=== PATIENT | male | born 1955 | race American Indian/Alaskan Native ===

== ENCOUNTER 2019-04-08 11:30 | Emergency (ER) | payer SELFPAY ==
[2019-04-08 11:49] VITALS: BP 164/90
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
== END 2019-04-08 13:28 | disposition home or self-care (01) ==
LOC: ED 11:30
DX: S76.012A Strain of muscle, fascia and tendon of left hip, initial encounter (principal); M16.12 Unilateral primary osteoarthritis, left hip; I10 Essential (primary) hypertension; Z79.899 Other long term (current) drug therapy; V89.2XXA Person injured in unspecified motor-vehicle accident, traffic, initial encounter; Y93.89 Activity, other specified; Y92.410 Unspecified street and highway as the place of occurrence of the external cause; Y99.8 Other external cause status

== ENCOUNTER 2019-12-16 08:09 | Emergency (ER) | payer SELFPAY ==
[2019-12-16] MEDS ORDERED: BENZONATATE 100 MG CAP PO ONE (09:44)
--- NOTE | 2019-12-16 10:55 | XRay Report ---
CHEST 2 VIEWS INDICATION / CLINICAL INFORMATION: Cough. COMPARISON: None available. FINDINGS: SUPPORT DEVICES: None. HEART / MEDIASTINUM: No significant abnormality. LUNGS / PLEURA: No significant pulmonary or pleural abnormality. No pneumothorax. ADDITIONAL FINDINGS: No significant additional findings. IMPRESSION: 1. No acute findings. Signer Name: Nader Fernandez MD Signed: 12/16/2019 10:51 AM Workstation Name: [email or web address]
--- NOTE | 2019-12-16 11:20 | Emergency Department Report ---
Upper Respiratory HPI - HPI Chief Complaint: Upper Respiratory Infection Stated Complaint: COUGH Time Seen by Provider: 12/16/19 09:25 Duration: 2 Days URI Symptoms: Rhinorrhea: Yes, Sore Throat: Yes, Ear Pain: No, Cough: Yes, Shortness of Breath: No, Sick Contacts: No, Unable to Take Fluids: No, Urine Output Abnormal: No, Listless Behavior: No Other History: This is a 64-year-old male nontoxic, well nourished in appearance, no acute signs of distress presents to the ED with c/o of nonproductive dry cough, rhinorrhea, sore throat, nasal congestion x2 days. Patient denies any sick contact. Patient denies any recent travels, long car, recent hospital stays. Patient denies any calf pain or calf tenderness. Patient denies any chest pain, short of breath, fever, chills, nausea, vomiting, hemoptysis, numbness, tingling, headache or stiff neck. Patient denies any allergies. Patient stated past medical history is hypertension that he does see a primary care doctor and stated is doing diet control rather than taking medicine. - Home Meds and Allergies Home Medications: Previous Rx's Medication Instructions Recorded Last Taken Type Cyclobenzaprine [Flexeril] 10 mg PO TID PRN #20 tablet 04/08/19 Unknown Rx Ibuprofen [Motrin 400 MG tab] 400 mg PO TID 5 Days #15 tablet 04/08/19 Unknown Rx Azithromycin [Zithromax Z-BIB] 250 mg PO DAILY #6 tablet 12/16/19 Unknown Rx Benzonatate [Tessalon Perles] 100 mg PO Q8HR PRN #12 capsule 12/16/19 Unknown Rx Allergies/Adverse Reactions: Allergies Allergy/AdvReac Type Severity Reaction Status Date / Time No Known Allergies Allergy Unverified 02/15/16 09:12 ED Review of Systems ROS: Stated complaint: COUGH Other details as noted in HPI Constitutional: denies: chills, fever Eyes: denies: eye pain, eye discharge, vision change ENT: throat pain, congestion. denies: ear pain Respiratory: cough. denies: shortness of breath, wheezing Cardiovascular: denies: chest pain, palpitations Endocrine: no symptoms reported Gastrointestinal: denies: abdominal pain, nausea, diarrhea Genitourinary: denies: urgency, dysuria Musculoskeletal: denies: back pain, joint swelling, arthralgia Skin: denies: rash, lesions Neurological: denies: headache, weakness, paresthesias Psychiatric: denies: anxiety, depression Hematological/Lymphatic: denies: easy bleeding, easy bruising ED Past Medical Hx - Past Medical History Previous Medical History?: Yes Hx Hypertension: Yes - Surgical History Past Surgical History?: No - Social History Smoking Status: Never Smoker Substance Use Type: None - Medications Home Medications: Home Medications Medication Instructions Recorded Confirmed Last Taken Type Cyclobenzaprine [Flexeril] 10 mg PO TID PRN #20 tablet 04/08/19 Unknown Rx Ibuprofen [Motrin 400 MG tab] 400 mg PO TID 5 Days #15 tablet 04/08/19 Unknown Rx Azithromycin [Zithromax Z-BIB] 250 mg PO DAILY #6 tablet 12/16/19 Unknown Rx Benzonatate [Tessalon Perles] 100 mg PO Q8HR PRN #12 capsule 12/16/19 Unknown Rx ED Bronchiolitis Physical Exam - Exam General: Vital signs noted. No distress. Alert and acting appropriately. Neurologic: Alert and oriented, no deficits. Musculoskeletal: Unremarkable. ED Bronchiolitis Tests - Testing Testing: CXR: Normal/Negative ED Physical Exam - General Limitations: No Limitations General appearance: alert, in no apparent distress - Head Head exam: Present: atraumatic, normocephalic - Eye Eye exam: Present: normal appearance - Expanded ENT Exam Expanded Ear exam: Present: normal external inspection Mouth exam: Present: normal external inspection. Absent: drooling, trismus, muffled voice Throat exam: Positive: tonsillar erythema, other (Uvula midline. No abscess or swelling.). Negative: tonsillomegaly, tonsillar exudate, R peritonsillar mass, L peritonsillar mass - Neck Neck exam: Present: normal inspection, full ROM. Absent: tenderness, meningismus, lymphadenopathy - Respiratory Respiratory exam: Present: normal lung sounds bilaterally. Absent: respiratory distress, wheezes, rales, rhonchi, stridor, chest wall tenderness, accessory muscle use, decreased breath sounds, prolonged expiratory - Cardiovascular Cardiovascular Exam: Present: regular rate, normal rhythm, normal heart sounds. Absent: bradycardia, tachycardia, irregular rhythm, systolic murmur, diastolic murmur, rubs, gallop - Extremities Exam Extremities exam: Present: normal inspection, full ROM - Back Exam Back exam: Present: normal inspection, full ROM - Neurological Exam Neurological exam: Present: alert, oriented X3, normal gait - Psychiatric Psychiatric exam: Present: normal affect, normal mood - Skin Skin exam: Present: warm, dry, intact, normal color. Absent: rash ED Course Vital Signs 12/16/19 08:16 Temperature 98.6 F Pulse Rate 84 Respiratory 20 Rate Blood Pressure 181/106 O2 Sat by Pulse 97 Oximetry - Reevaluation(s) Reevaluation #1: 12/16/19 11:18 Patient is speaking in full sentences with no signs of distress noted. ED Medical Decision Making - Medical Decision Making This is a 64-year-old male that presents with bronchitis and pharyngitis. Patient is stable and was examined by me. Chest x-ray has been obtained and dictated by radiologist with normal exam. Patient is notified of x-ray results with no questions noted. Patient does not meet clinical concerns of COVID-19 but patient was instructed and educated on signs and symptoms and to self quarantine and seek medical attention as soon as possible if symptoms does occur. Due to patient having symptoms of upper respiratory infection and worsening I will treat patient empirically with zpak. Patient was instructed to increase hydration, rest and take Tylenol for fever episodes. Patient received tesslone perrls in the ED. Vitals stable. Patient is nonfebrile and normal heart rate. According to ACEP: (1) in ED patients with asymptomatic markedly elevated blood pressure, routine screening for acute target organ injury (eg, serum creatinine, urinalysis, ECG) is not required. (1) In patients with asymptomatic markedly elevated blood pressure, routine ED medical intervention is not required. No changes in b/p from previous ED visits. Patient was instructed Follow-up with a primary care doctor in 3-5 days or if symptoms worsen and continue return to emergency room as soon as possible. At time time of discharge, the patient does not seem toxic or ill in appearance. No acute signs of distress noted. Patient agrees to discharge treatment plan of care. No further questions noted by the patient.nt. Critical care attestation.: If time is entered above; I have spent that time in minutes in the direct care of this critically ill patient, excluding procedure time. ED Disposition Clinical Impression: Bronchitis Pharyngitis Qualifiers: Pharyngitis/tonsillitis etiology: unspecified etiology Qualified Code(s): J02.9 - Acute pharyngitis, unspecified Disposition: DC- TO HOME OR SELFCARE Is pt being admited?: No Does the pt Need Aspirin: No Condition: Stable Instructions: Pharyngitis (ED), Acute Bronchitis (ED) Additional Instructions: Follow-up with a primary care doctor in 3-5 days or if symptoms worsen and continue return to emergency room as soon as possible. Prescriptions: Benzonatate [Tessalon Perles] 100 mg PO Q8HR PRN #12 capsule PRN Reason: Cough Azithromycin [Zithromax Z-BIB] 250 mg PO DAILY #6 tablet Referrals: PRIMARY MD PAULA [Primary Care Provider] - 3-5 Days GLENNA SHEFFIELD MD [Staff Physician] - 3-5 Days [facility] [Provider Group] - 3-5 Days Forms: Work/School Release Form(ED)
[2019-12-16 11:30] VITALS: BP 178/100
== END 2019-12-16 11:29 | disposition home or self-care (01) ==
LOC: ED 08:09
DX: J40 Bronchitis, not specified as acute or chronic (principal); J02.9 Acute pharyngitis, unspecified; I10 Essential (primary) hypertension; Z79.899 Other long term (current) drug therapy
CPT/HCPCS: 71046

== ENCOUNTER 2021-03-31 17:04 | Emergency (ER) | payer SELFPAY ==
--- NOTE | 2021-03-31 18:51 | XRay Report ---
CHEST 1 VIEW 03/31/2021 6:41 PM INDICATION / CLINICAL INFORMATION: cough. COMPARISON: Chest x-ray 12/16/2019 FINDINGS: SUPPORT DEVICES: None. HEART / MEDIASTINUM: No significant abnormality. LUNGS / PLEURA: No significant pulmonary or pleural abnormality. No pneumothorax. ADDITIONAL FINDINGS: No significant additional findings. IMPRESSION: 1. No acute findings. Signer Name: Giacomo King MD Signed: 03/31/2021 6:46 PM Workstation Name: [id number]
[2021-03-31 19:49] VITALS: BP 159/102
--- NOTE | 2021-03-31 19:51 | Event Note ---
ED Screening Note ED Screening Note: cough for over a month states he feels lightheaded and like he wants to pass out he states occasionally he feels sob and wheezing denies any CP, leg swelling, fever, v/d, hemoptysis he has never been a smoker pmhx htn recently placed on lisinopril oxygen is 92% xr is normal will order labs, ekg This initial assessment/diagnostic orders/clinical plan/treatment(s) is/are subject to change based on patients health status, clinical progression and re- assessment by fellow clinical providers in the ED. Further treatment and workup at subsequent clinical providers discretion. Patient/guardian urged not to elope from the ED as their condition may be serious if not clinically assessed and managed. Initial orders include: labs, ekg
[2021-03-31 20:32] LABS: Basophils # (Auto) 0.1 K/mm3 (0.0-0.1); Basophils % (Auto) 0.9 % (0.0-1.8); Eosinophils % (Auto) 14.9 % (0.0-4.3); Hematocrit 45.2 % (35.5-45.6); Hemoglobin 15.3 gm/dl (11.8-15.2); Lymphocytes # (Auto) 1.9 K/mm3 (1.2-5.4); Lymphocytes % (Auto) 29.1 % (13.4-35.0); Mean Corpuscular HGB Conc 34 % (32-34); Mean Corpuscular Volume 89 fl (84-94); Monocytes # (Auto) 0.7 K/mm3 (0.0-0.8); Monocytes % (Auto) 10.2 % (0.0-7.3); Platelet Count 342 K/mm3 (140-440); Red Blood Count 5.06 M/mm3 (3.65-5.03); Red Cell Distribution Width 14.4 % (13.2-15.2)
[2021-03-31 20:49] LABS: Alanine Aminotransferase 46 units/L (7-56); Albumin 3.9 g/dL (3.9-5); BUN/Creatinine Ratio 18; Blood Urea Nitrogen 22 mg/dL (9-20); Calcium 9.4 mg/dL (8.4-10.2); Hemolysis Index 11
--- NOTE | 2021-03-31 22:20 | Cat Scan Report ---
CTA chest with contrast INDICATION : Pt complains of cough, near syncope, Hypoxia, elevated D-dimer. TECHNIQUE: Axial imaging performed through the chest, with contrast bolus timing set to maximize opa cification of the pulmonary arteries. 3-plane MIP reformatted images were obtained. All CT scans at this location are performed using CT dose reduction for ALARA by means of automated exposure control. 100 mL of intravenous contrast administered. COMPARISON: None FINDINGS: Bolus/PTE: Contrast bolus timing is adequate. No filling defect is present to suggest PTE. Mediastinum: Heart and great vessels appear normal. No pathologic mediastinal adenopathy. Lungs: There is minimal atelectasis in the lungs as well as bilateral central peribronchial thickeni ng. No dense consolidation or effusion. Upper abdomen: Limited imaging of the upper abdomen shows nothing acute. Bones: Degenerative changes in the spine with nothing acute. IMPRESSION: 1. Negative for PTE. 2. Pulmonary findings as above could be seen with a tracheobronchitis or very early edema. Signer Name: Fermin Coffey MD Signed: 03/31/2021 10:16 PM Workstation Name: [id number]
[2021-04-01] MEDS ORDERED: dexAMETHasone 4 MG/ML VIAL IM ONE (00:43)
--- NOTE | 2021-04-01 01:09 | Emergency Department Report ---
ED General Adult HPI - General Chief complaint: Upper Respiratory Infection Stated complaint: BAD COLD PUI?: Yes Time Seen by Provider: 03/31/21 19:41 Source: patient Mode of arrival: Ambulatory Limitations: No Limitations - History of Present Illness Initial comments: 65-year-old male presents emerged department complaining of a 1 month history of cough with occasional mucus production and occasional wheezing off and on. No reported history of asthma. Reports no hemoptysis no hematemesis no hematochezia. No known contact with coronavirus. Reports no diarrhea -: Gradual, month(s) (1) Location: chest Radiation: non-radiation Quality: dull Consistency: constant Improves with: none Worsens with: none Associated Symptoms: cough. denies: nausea/vomiting, syncope, weakness Treatments Prior to Arrival: none - Related Data Previous Rx's Medication Instructions Recorded Last Taken Type Cyclobenzaprine [Flexeril] 10 mg PO TID PRN #20 tablet 04/08/19 Unknown Rx Ibuprofen [Motrin 400 MG tab] 400 mg PO TID 5 Days #15 tablet 04/08/19 Unknown Rx Azithromycin [Zithromax Z-BIB] 250 mg PO DAILY #6 tablet 12/16/19 Unknown Rx Benzonatate [Tessalon Perles] 100 mg PO Q8HR PRN #12 capsule 12/16/19 Unknown Rx Albuterol Mdi (or & Nicu Only) 1 puff IH QID PRN #8.5 gram 04/01/21 Unknown Rx [ProAir HFA Inhaler] Benzonatate [Tessalon Perles] 100 mg PO Q8HR #30 capsule 04/01/21 Unknown Rx Allergies Allergy/AdvReac Type Severity Reaction Status Date / Time No Known Allergies Allergy Verified 03/31/21 18:23 ED Review of Systems ROS: Stated complaint: BAD COLD Other details as noted in HPI Comment: All other systems reviewed and negative ED Past Medical Hx - Past Medical History Previous Medical History?: Yes Hx Hypertension: Yes - Social History Smoking Status: Never Smoker Substance Use Type: None - Medications Home Medications: Home Medications Medication Instructions Recorded Confirmed Last Taken Type Cyclobenzaprine [Flexeril] 10 mg PO TID PRN #20 tablet 04/08/19 Unknown Rx Ibuprofen [Motrin 400 MG tab] 400 mg PO TID 5 Days #15 tablet 04/08/19 Unknown Rx Azithromycin [Zithromax Z-BIB] 250 mg PO DAILY #6 tablet 12/16/19 Unknown Rx Benzonatate [Tessalon Perles] 100 mg PO Q8HR PRN #12 capsule 12/16/19 Unknown Rx Albuterol Mdi (or & Nicu Only) 1 puff IH QID PRN #8.5 gram 04/01/21 Unknown Rx [ProAir HFA Inhaler] Benzonatate [Tessalon Perles] 100 mg PO Q8HR #30 capsule 04/01/21 Unknown Rx ED Physical Exam - General Limitations: No Limitations General appearance: alert, in no apparent distress - Head Head exam: Present: atraumatic, normocephalic - Eye Eye exam: Present: normal appearance, PERRL, EOMI Pupils: Present: normal accommodation - ENT ENT exam: Present: normal exam, mucous membranes moist - Neck Neck exam: Present: normal inspection, full ROM - Respiratory Respiratory exam: Present: normal lung sounds bilaterally, rhonchi. Absent: respiratory distress, wheezes, decreased breath sounds, prolonged expiratory - Cardiovascular Cardiovascular Exam: Present: regular rate, normal rhythm. Absent: systolic murmur, diastolic murmur, rubs, gallop - GI/Abdominal GI/Abdominal exam: Present: soft, normal bowel sounds - Rectal Rectal exam: Present: deferred - Extremities Exam Extremities exam: Present: normal inspection, normal capillary refill - Back Exam Back exam: Present: normal inspection. Absent: CVA tenderness (R), CVA tenderness (L), paraspinal tenderness, vertebral tenderness - Neurological Exam Neurological exam: Present: alert, oriented X3, CN II-XII intact, normal gait - Psychiatric Psychiatric exam: Present: normal affect, normal mood. Absent: depressed, agitated, flat affect, manic - Skin Skin exam: Present: warm, dry, intact, normal color. Absent: rash, cyanosis, diaphoretic ED Course Vital Signs 03/31/21 03/31/21 04/01/21 18:25 19:49 01:10 Temperature 98.3 F Pulse Rate 94 H 90 79 Respiratory 18 16 Rate Blood Pressure 186/93 159/102 [Right] O2 Sat by Pulse 96 92 99 Oximetry ED Medical Decision Making - Lab Data Result diagrams: 03/31/21 20:01 03/31/21 20:01 Critical care attestation.: If time is entered above; I have spent that time in minutes in the direct care of this critically ill patient, excluding procedure time. ED Disposition Clinical Impression: Cough, Acute tracheobronchitis Disposition: 01 HOME / SELF CARE / HOMELESS Is pt being admited?: No Does the pt Need Aspirin: No Condition: Stable Instructions: Cool Mist Vaporizer, Cough, Adult, Acute Bronchitis, Adult, Acute Bronchitis (ED) Prescriptions: Albuterol Mdi (or & Nicu Only) [ProAir HFA Inhaler] 1 puff IH QID PRN #8.5 gram PRN Reason: cough or sob Benzonatate [Tessalon Perles] 100 mg PO Q8HR #30 capsule Referrals: [facility] [Provider Group] - 3-5 Days PRIMARY CARE, [Primary Care Provider] - 3-5 Days
--- NOTE | 2021-04-02 09:14 | Electrocardiograph Report ---
[facility] Test Date: 2021-03-31 Test Time: 19:56:56 Pat Name: GEORGIA CHATMAN Department: Room: Gender: M Waiter/Waitress Informal: CANDY : 1955 Requested By: DO PADRON Order Number: [id number] Reading MD: Wade Hylton Measurements Intervals [place] Rate: 90 P: 87 CO: 164 QRS: 39 QRSD: 87 T: 86 QT: 378 QTc: 464 Interpretive Statements Sinus rhythm Probable left atrial enlargement Nonspecific T abnormalities, lateral leads No previous ECG available for comparison Electronically Signed On 04-02-2021 9:13:43 EDT by Wade Hylton
== END 2021-04-01 01:10 | disposition home or self-care (01) ==
LOC: ED 17:04
DX: J00 Acute nasopharyngitis [common cold] (principal); I10 Essential (primary) hypertension; Z79.899 Other long term (current) drug therapy
CPT/HCPCS: 36415; 71045; 71275; 80053; 83880; 84484; 85025; 85379; 93005; 96372; 99284; J1100; Q9967

== ENCOUNTER 2021-06-14 16:49 | Emergency (ER) | payer SELFPAY ==
[2021-06-14] MEDS ORDERED: methylPREDNISolone Sod Succinate 125 MG/2 ML INJ IV ONE (18:13)
[2021-06-14] MEDS ORDERED: IPRATROPIUM/ALBUTEROL SULFATE 3 ML AMPUL.NEB IH ONE ×2 (18:13→20:46)
--- NOTE | 2021-06-14 18:14 | Emergency Department Report ---
ED General Adult HPI - General Chief complaint: Upper Respiratory Infection Stated complaint: COUGH,DIFFICULTY BREATHING Time Seen by Provider: 06/14/21 17:23 Source: patient Mode of arrival: Ambulatory Limitations: No Limitations - History of Present Illness Initial comments: 65-year-old male presents to the ER today with complaints of cough and shortness of breath. Patient states that he has been suffering for cough now for about 2 months. He states that this is his fifth ER visit in the past 2 months for the same cough. This is his second visit here for the cough, wanted for discomfort started he came here and he has since been to a few ERs as well as his PCP. He states no one can exactly tell him the reason for the cough. He has had [facility] including labs, and he states that his most recent visit was to [facility] which was a few weeks ago and they did a CT of his chest to rule out a blood clot which was negative. Patient states that they did give him prednisone which seemed to be helping. He states that he was feeling better to the point that he was able to start exercising again. He states that he ran about 5 miles on Monday and was fine and then today he ran about a mile and a half, and when he went home and drank some juice and water he started to cough severely and then he started having shortness of breath. He states that the shortness of breath is new. Shortness of breath seems to be mainly when he cough is on exertion. He also feels like there is a "rattling" in his throat. He denies any obvious wheezing. He denies any chest pain. He denies any calf pain or lower extremity swelling. He denies any fever or chills. He states that he has had 2 - Covid test in the past 2 months. He has not gotten any of the COVID-19 vaccines. He states that his next appointment with his PCP is not until June. He did denies any known history of lung issues, heart issues and he denies any other significant past medical history. He denies tobacco use. Complaint: Cough/SOB -: month(s) - Related Data Previous Rx's Medication Instructions Recorded Last Taken Type Cyclobenzaprine [Flexeril] 10 mg PO TID PRN #20 tablet 04/08/19 Unknown Rx Ibuprofen [Motrin 400 MG tab] 400 mg PO TID 5 Days #15 tablet 04/08/19 Unknown Rx Azithromycin [Zithromax Z-BIB] 250 mg PO DAILY #6 tablet 12/16/19 Unknown Rx Benzonatate [Tessalon Perles] 100 mg PO Q8HR PRN #12 capsule 12/16/19 Unknown Rx Albuterol Mdi (or & Nicu Only) 1 puff IH QID PRN #8.5 gram 06/14/21 Unknown Rx [ProAir HFA Inhaler] Benzonatate [Tessalon Perles] 100 mg PO Q8HR #30 capsule 06/14/21 Unknown Rx predniSONE [Deltasone] 50 mg PO QDAY #4 tablet 06/14/21 Unknown Rx Allergies Allergy/AdvReac Type Severity Reaction Status Date / Time No Known Allergies Allergy Verified 03/31/21 18:23 ED Review of Systems ROS: Stated complaint: COUGH,DIFFICULTY BREATHING Other details as noted in HPI Comment: All other systems reviewed and negative Constitutional: denies: chills, fever Eyes: denies: eye pain, eye discharge, vision change ENT: denies: ear pain, throat pain, dental pain, hearing loss, epistaxis, congestion Respiratory: cough, shortness of breath. denies: wheezing Cardiovascular: denies: chest pain, palpitations Endocrine: no symptoms reported Gastrointestinal: denies: abdominal pain, nausea, diarrhea, constipation, hematemesis, melena, hematochezia Genitourinary: denies: urgency, dysuria, frequency, hematuria, discharge, testicular pain, testicular mass Musculoskeletal: denies: back pain, joint swelling, arthralgia, myalgia Skin: denies: rash, lesions, change in color, change in hair/nails, pruritus Neurological: denies: headache, weakness, numbness, paresthesias, confusion, abnormal gait, vertigo Psychiatric: denies: anxiety, depression, auditory hallucinations, visual hallucinations, homicidal thoughts, suicidal thoughts Hematological/Lymphatic: denies: easy bleeding, easy bruising ED Past Medical Hx - Past Medical History Previous Medical History?: Yes Hx Hypertension: Yes - Social History Smoking Status: Never Smoker Substance Use Type: None - Medications Home Medications: Home Medications Medication Instructions Recorded Confirmed Last Taken Type Cyclobenzaprine [Flexeril] 10 mg PO TID PRN #20 tablet 04/08/19 Unknown Rx Ibuprofen [Motrin 400 MG tab] 400 mg PO TID 5 Days #15 tablet 04/08/19 Unknown Rx Azithromycin [Zithromax Z-BIB] 250 mg PO DAILY #6 tablet 12/16/19 Unknown Rx Benzonatate [Tessalon Perles] 100 mg PO Q8HR PRN #12 capsule 12/16/19 Unknown Rx Albuterol Mdi (or & Nicu Only) 1 puff IH QID PRN #8.5 gram 06/14/21 Unknown Rx [ProAir HFA Inhaler] Benzonatate [Tessalon Perles] 100 mg PO Q8HR #30 capsule 06/14/21 Unknown Rx predniSONE [Deltasone] 50 mg PO QDAY #4 tablet 06/14/21 Unknown Rx ED Physical Exam - General Limitations: No Limitations ED Course Vital Signs 06/14/21 06/14/21 06/14/21 16:56 21:25 21:26 Temperature 98.1 F 97.6 F Pulse Rate 99 H 90 Respiratory 24 22 Rate Blood Pressure 150/83 Blood Pressure 172/96 [Right] O2 Sat by Pulse 96 94 94 Oximetry ED Medical Decision Making - Lab Data Result diagrams: 06/14/21 18:25 06/14/21 18:25 - Radiology Data Radiology results: report reviewed Patient: GEORGIA CHATMAN MR#: [id number] : 1955 Acct:[id number] Age/Sex: 65 / M ADM Date: 06/14/21 Loc: ED Attending Dr: Ordering Physician: ARIC LLOYD Date of Service: 06/14/21 Procedure(s): XR chest routine 2V Accession Number(s): [id number] cc: ARIC LLOYD Fluoro Time In Minutes: CHEST 2 VIEWS INDICATION: sob. COMPARISON: 03/31/2021 FINDINGS: SUPPORT DEVICES: None. HEART: Within normal limits. LUNGS/PLEURA: Mild central peribronchial thickening/early edema with no pleural effusion or consolidation. No pneumothorax. ADDITIONAL FINDINGS: None. IMPRESSION: 1. Lung findings as above. Signer Name: Fermin Coffey MD Signed: 06/14/2021 6:31 PM Workstation Name: [id number] Transcribed By: JUAN Dictated By: Fermin Coffey MD Electronically Authenticated By: Fermin Coffey MD Signed Date/Time: 06/14/211830 DD/ 30 TD/TT: - Medical Decision Making All labs, as well as chest x-ray and CT reviewed. No significant acute findings on work-up today. Patient reports that shortness of breath is better after receiving a breathing treatment. Repeat chest exam shows that he still has some mild expiratory wheezing, but is currently not in any respiratory distress. Patient was ambulated in the ER by me, and at rest he had O2 sat at 90%, during ambulation he maintained an O2 sat of 99% with a heart rate around 80s. He reported no shortness of breath or any other complaints during his ambulation and he did not appear to be in any distress. At this time I do not see any indication for admission to the hospital, or specialist consult at this time. Patient overall is well-appearing, nontoxic and is neurologically intact. Her history is concerning for possible chronic bronchitis. 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 Patient states that he is trying to find a new PCP because every time he calls to follow-up, they were told I would call back when he never received a return call. Patient will be given Referrals to local PCP and recommend that he get referred to a forest management teacher for further evaluation. In the meantime patient will be given albuterol, and few more days of prednisone and something to help with cough. Patient expressed understanding of all i nstructions and agree with plan. Patient stable at time of discharge. Critical care attestation.: If time is entered above; I have spent that time in minutes in the direct care of this critically ill patient, excluding procedure time. ED Disposition Clinical Impression: Chronic cough, Bronchitis Disposition: 01 HOME / SELF CARE / HOMELESS Is pt being admited?: No Does the pt Need Aspirin: No Condition: Stable Instructions: Cough, Adult, Iiri-mb-Wnic, Chronic Bronchitis, Adult, Chronic Bronchitis (ED) Additional Instructions: I recommend that you take the prednisone as prescribed and also use the albuterol MDI as prescribed to help with SOB. The Tessalon Perles as pres cribed. I recommend following up with your PCP for further evaluation of your symptoms and I do recommend referral to pulmonology for further evaluation of your symptoms. Return to the ER if your symptoms changes or worsens in any way. Prescriptions: predniSONE [Deltasone] 50 mg PO QDAY #4 tablet Albuterol Mdi (or & Nicu Only) [ProAir HFA Inhaler] 1 puff IH QID PRN #8.5 gram PRN Reason: cough or sob Benzonatate [Tessalon Perles] 100 mg PO Q8HR #30 capsule Referrals: GLENNA SHEFFIELD MD [Staff Physician] - 3-5 Days [facility] [Provider Group] - 3-5 Days Time of Disposition: 21:55
--- NOTE | 2021-06-14 18:36 | XRay Report ---
CHEST 2 VIEWS INDICATION: sob. COMPARISON: 03/31/2021 FINDINGS: SUPPORT DEVICES: None. HEART: Within normal limits. LUNGS/PLEURA: Mild central peribronchial thickening/early edema with no pleural effusion or consolida tion. No pneumothorax. ADDITIONAL FINDINGS: None. IMPRESSION: 1. Lung findings as above. Signer Name: Fermin Coffey MD Signed: 06/14/2021 6:31 PM Workstation Name: [id number]
[2021-06-14 18:41] LABS: Basophils # (Auto) 0.1 K/mm3 (0.0-0.1); Eosinophils # (Auto) 0.9 K/mm3 (0.0-0.4); Eosinophils % (Auto) 10.3 % (0.0-4.3); Hematocrit 47.9 % (35.5-45.6); Hemoglobin 16.2 gm/dl (11.8-15.2); Lymphocytes # (Auto) 1.9 K/mm3 (1.2-5.4); Lymphocytes % (Auto) 22.9 % (13.4-35.0); Mean Corpuscular HGB Conc 34 % (32-34); Mean Corpuscular Volume 87 fl (84-94); Monocytes # (Auto) 0.7 K/mm3 (0.0-0.8); Monocytes % (Auto) 8.8 % (0.0-7.3); Platelet Count 235 K/mm3 (140-440); Red Blood Count 5.51 M/mm3 (3.65-5.03); Red Cell Distribution Width 15.1 % (13.2-15.2)
[2021-06-14 19:02] LABS: Alanine Aminotransferase 23 units/L (7-56); Albumin 4.5 g/dL (3.9-5); BUN/Creatinine Ratio 17; Blood Urea Nitrogen 22 mg/dL (9-20); Calcium 9.4 mg/dL (8.4-10.2); Hemolysis Index 7
[2021-06-14] MEDS ORDERED: methylPREDNISolone Sod Succinate 125 MG/2 ML INJ ONE (20:46)
[2021-06-14 21:26] VITALS: BP 172/96
--- NOTE | 2021-06-14 21:37 | Cat Scan Report ---
CTA CHEST WITH CONTRAST INDICATION / CLINICAL INFORMATION: SOB/elevated d-dimer. TECHNIQUE: Axial CT images were obtained through the chest after injection of IV contrast. 3 plane ID P and/or 3D reconstructions were produced. All CT scans at this location are performed using CT dose reduction for ALARA by means of automated exposure control. COMPARISON: 03/31/2021 FINDINGS: The pulmonary arteries are patent without filling defect or evidence for PTE. Mildly prominent hilar nodes The esophagus is mildly thickened. Heart size appears normal. Peribronchial thickening/cuffing is seen bilaterally with mild increased interstitial prominence. No focal consolidation. Some atelect asis in the right middle lobe anteriorly and lingula anteriorly. ADDITIONAL FINDINGS: None. UPPER ABDOMEN: No acute findings. SKELETAL STRUCTURES: No significant osseous abnormality. IMPRESSION: 1. No CT evidence for pulmonary embolism. 2. Mild bilateral atelectasis with mild interstitial prominence. Atelectasis in the right middle lobe and lingula Signer Name: Joshua Fong MD Signed: 06/14/2021 9:33 PM Workstation Name: [id number]
--- NOTE | 2021-06-15 19:12 | Electrocardiograph Report ---
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
== END 2021-06-14 22:08 | disposition home or self-care (01) ==
LOC: ED 16:49
DX: R05.3 Chronic cough (principal); J40 Bronchitis, not specified as acute or chronic; I10 Essential (primary) hypertension
CPT/HCPCS: 36415; 71046; 71275; 80053; 84484; 85025; 85379; 93005; 96374; 99284; J2930; Q9967

== ENCOUNTER 2021-06-22 13:42 | Emergency (ER) | payer SELFPAY | END 2021-06-23 15:25 | LOC: ED 13:42 | DX: M79.89 Other specified soft tissue disorders (principal); Z53.21 Procedure and treatment not carried out due to patient leaving prior to being seen by health care provider ==

== ENCOUNTER 2021-08-31 07:50 | Emergency (ER) | payer SELFPAY | END 2021-08-31 12:15 | LOC: ED 07:50 | DX: M25.469 Effusion, unspecified knee (principal); Z53.21 Procedure and treatment not carried out due to patient leaving prior to being seen by health care provider ==